=== PATIENT | male | born 2005 | race Caucasian/White ===

== ENCOUNTER 2023-08-30 23:03 | Emergency (ER) | payer BC, SELFPAY ==
[2023-08-30 23:19] VITALS: BP 109/69
--- NOTE | 2023-08-31 00:39 | ED.MUSCINJ ---
HPI-Injury
General
Chief Complaint: Musculo-Skeletal Complaint
Source: patient
Exam Limitations: none
Time Seen by Provider: 08/30/23 23:57
Nursing documentation reviewed up to this point in time: agreed with
Travel History
Have you had any contact with someone who has COVID-19?: No
Do you have any symptoms of coronavirus? Fever > 100 degrees, chills, cough, shortness of breath, sore throat, loss of taste or smell, muscle aches, or headache?: No
History of Present Illness-Injury
Initial Injury comments:
18-year-old male states he was wrestling around with his friends earlier this evening and injured his left great toe.
Past History
Past History
ED Past Medical History: None
ED Past Surgical History: Other (wisdom teeth)
Social History
Tobacco: Non-smoker
Personal: Single
Living: with family
Employment: Employed
Review of Systems
Review of Systems
Allergies reviewed?: Yes
All Other Systems: ROS reviewed and negative except as documented in HPI and ROS
Musculoskeletal: Reports other (pain left great toe)
Skin: Reports no symptoms
Musculoskeletal Injury Exam
Musculoskeletal Injury Exam
Left great toe:
Pain with Movement?: Moderate
Tender to palpation?: Moderate
Soft tissue swelling?: Mild
External deformity and angulation?: None
Malalignment/deformity?: No
Range of motion: Limited
Distal skin color and temperature: normal-warm & good color
Capillary Refill: normal
Normal distal neurovascular exam?: Yes
Phy Exam
Physical Exam
Physical Exam:
PHYSICAL EXAMINATION:
General: no apparent distress, not acutely ill
Neuro: alert and oriented.
Psychiatric: well kept. interactive and cooperative
Musculoskeletal: Moves with ease
Skin: Warm, pink.
Injury Course
Orders/Labs/Results
Orders:
Orders
08/31/23 00:00
CR Toe(s) Min 2 Vw Left Urgent
Reason For Exam: injury, pain
Indicate Which Toe:: Great
08/31/23 00:29
Ortho Boot Left- Treatment ONCE
Short or tall?: Short
MDM/Problems Addressed
MDM/Problems Addressed:
18-year-old male states he was wrestling around with his friends earlier this evening and injured his left great toe.
X-ray left great toe reveals a comminuted nondisplaced fracture of the middle phalanx
Ortho boot applied
Patient has own crutches at home
He will follow-up with [facility] whom he has seen in the past
*Critical Care Note
Total Time (30-74mins, 75-104mins- exclusive of procedures): Not Applicable
ED Attending Note
-
Portions of this chart may have been created with voice recognition software.� Occasional wrong word or��sound alike� substitutions may have occurred due to the inherent limitations of voice recognition software.
Discharge Plan
Departure
Patient Disposition: Home (Routine Discharge)
Date of Disposition: 08/31/23
Time of Disposition: 00:33
Patient with high blood pressure during this ER visit?: No
Condition: Good
Discharge Problem:
Closed fracture of left great toe
Instructions: Using Cold for Pain, Toe Fracture ED
Prescriptions:
No Action
No Current Medications
0
Referrals:
Kevin Murpyh MD [Active] - Call in 1-3 days for appt
NONE,* [Family Provider] -
Activity Restrictions/Additional Instructions:
As we discussed, Tylenol or ibuprofen as needed for pain. Wear the boot at all times when up and around until further instructed by the orthopedic doctor.
Over the weekend, rest with the foot elevated to the level of your heart, apply cool compress 20 minutes off and on
Interventions
Interventions:
*Risk Screen - Suicide Last Done: 08/30/23 23:19
*General Assessment Last Done: 08/30/23 23:19
*Neglect/Abuse Screening Last Done: 08/30/23 23:19
ED- Fall Risk Assessment Last Done: 08/30/23 23:59
*ED COVID-19 Vaccine History Last Done: 08/30/23 23:59
*Nursing Disposition Last Done: 08/31/23 01:25
ED-Musculoskeletal Assessment Last Done: 08/30/23 23:59
== END 2023-08-31 01:25 | disposition home or self-care (01) ==
LOC: EMR 23:03
PROVIDERS: EMERGENCY PHYSICIAN Emergency Medicine
DX: S92.402A Displaced unspecified fracture of left great toe, initial encounter for closed fracture (principal); Y93.83 Activity, rough housing and horseplay
CPT/HCPCS: 99283; 73660

== ENCOUNTER → 2023-09-04 06:11 | Day surgery (SDC) | payer BC, SELFPAY ==
[2023-09-04] VITALS (9 sets, daily range): BP systolic 98–116; BP diastolic 40–68; BMI 21.4
[2023-09-04] MEDS: NORMOSOL-R 1000 IV (07:50)
[2023-09-04] MEDS: TYLENOL 1000 MG PO (07:50)
[2023-09-04] MEDS: CELEBREX 200 MG PO (07:50)
== END ==
LOC: SDS 06:11
PROVIDERS: ATTENDING PHYSICIAN Student in an Organized Health Care Education/Training Program
DX: S92.412A Displaced fracture of proximal phalanx of left great toe, initial encounter for closed fracture (principal); X50.0XXA Overexertion from strenuous movement or load, initial encounter; Y93.72 Activity, wrestling
CPT/HCPCS: 28505